=== PATIENT | female | born 1985 | race Caucasian/White ===

== ENCOUNTER 2017-07-31 13:46 | Emergency (ER) | payer OTHER ==
[~2017-07-31] VITALS: Ht 157.5 cm; Wt 115.0 kg
[2017-07-31 13:48] VITALS: BP 139/86; PULSE 92; RESP 22; TEMP 98.6; O2SAT 97
[2017-07-31 14:51] LABS: AUTOMATED NEUTROPHIL # 7.2 TH/MM3 (1.8-7.7); BASOPHIL % 0.3 % (0.0-2.0); EOSINOPHIL # 0.1 TH/MM3 (0-0.4); EOSINOPHIL % 0.9 % (0.0-4.0); HEMATOCRIT 36.1 % (35.0-46.0); HEMO FLAGS DIFF FINAL; LYMPH % 25.9 % (9.0-44.0); LYMPHOCYTE # 2.8 TH/MM3 (1.0-4.8); MEAN CELL VOLUME 92.8 FL (80.0-100.0); MEAN CORPUSCULAR HEMOGLOBIN 32.2 PG (27.0-34.0); MEAN CORPUSCULAR HGB CONC 34.7 % (32.0-36.0); MONO % 5.8 % (0.0-8.0); NEUT % 67.1 % (16.0-70.0); PLATELET COUNT 177 TH/MM3 (150-450); RED BLOOD COUNT 3.89 MIL/MM3 (4.00-5.30); RED CELL DISTRIBUTION WIDTH 12.6 % (11.6-17.2); WHITE BLOOD COUNT 10.8 TH/MM3 (4.0-11.0)
[2017-07-31 15:00] LABS: APTT (PATIENT) 26.1 SEC (24.3-30.1); PROTHROMBIN TIME - PATIENT 10.9 SEC (9.8-11.6)
[2017-07-31 15:08] LABS: BICARBONATE 27.7 MEQ/L (21.0-32.0); POTASSIUM 3.6 MEQ/L (3.5-5.1)
[2017-07-31 15:09] LABS: BACTERIA, URINE RARE /hpf; BLOOD, URINE MOD (NEG); COMMENT (UR) CULT NOT INDICATED; CULTURE IF INDICATED CULT NOT INDICATED; GLUCOSE,URINE NEG (NEG); KETONE, URINE NEG (NEG); MUCUS URINE FEW /lpf (OCC); NITRITE,URINE NEG (NEG); PH, URINE 5.5 (5.0-8.5); SQUAMOUS EPITHELIAL CELL URINE 5 /hpf (0-5); URINE COLOR YELLOW (YELLW/STRAW)
--- NOTE | 2017-07-31 15:39 | PD ---
HPI Chief Complaint: Related Problem Time Seen by Provider: 14:02 Travel History International Travel<30 days: No Contact w/Intl Traveler<30days: No Traveled to known affect area: No History of Present Illness HPI 32yo F who is 6 weeks 1 day presents to the ED with c/o vaginal spotting less than an hour ago. 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 Denies any fever, chest pain, sob, n/v, abdominal pain , dysuria, vaginal discharge. PFSH Past Medical History Medical History: Denies Significant Hx Diminished Hearing: No Influenza Vaccination: No ?: Miscarriage: 2 Dilation and Curettage (D&C): Yes Past Surgical History Cholecystectomy: Yes Social History Alcohol Use: No Tobacco Use: No Substance Use: No Allergies-Medications Reported Meds & Prescriptions Reported Meds & Active Scripts Active Macrobid (Nitrofurantoin Monoh/Nitrofur Macro) 100 Mg Cap 100 Mg PO BID 5 Days Review of Systems Except as stated in HPI: all other systems reviewed are Neg Physical Exam Narrative GENERAL: 32yo F not in distress. SKIN: Focused skin assessment warm/dry. HEAD: Atraumatic. Normocephalic. CARDIOVASCULAR: Regular rate and rhythm. No murmur appreciated. RESPIRATORY: No accessory muscle use. Clear to auscultation. Breath sounds equal bilaterally. GASTROINTESTINAL: Abdomen soft, non-tender, nondistended. No rebound tenderness or guarding. PELVIC: Cervical os closed. No blood in vaginal vault. No CMT or adnexal tenderness bilaterally. No vaginal discharge. MUSCULOSKELETAL: No obvious deformities. No clubbing. No cyanosis. No edema. NEUROLOGICAL: Awake and alert. No obvious cranial nerve deficits. Motor grossly within normal limits. Normal speech. PSYCHIATRIC: Appropriate mood and affect; insight and judgment normal. Data Data Last Documented VS Vital Signs Date Time Temp Pulse Resp B/P (MAP) Pulse Ox O2 Delivery O2 Flow Rate FiO2 07/31/17 18:28 86 18 140/83 (102) 100 07/31/17 13:48 98.6 Room Air Orders Orders Complete Blood Count With Diff (07/31/17 14:10) Basic Metabolic Panel (Bmp) (07/31/17 14:10) Beta Hcg (Quant/Titer) (07/31/17 14:10) Prothrombin Time / Inr (Pt) (07/31/17 14:10) Act Partial Throm Time (Ptt) (07/31/17 14:10) Type And Screen (07/31/17 14:10) Urinalysis - C+S If Indicated (07/31/17 14:11) Ed Poc Ultrasound (07/31/17 ) Us Pelvis Preg W Transvaginal (07/31/17 ) Labs Laboratory Tests Test 07/31/17 14:26 07/31/17 14:46 White Blood Count 10.8 TH/MM3 Red Blood Count 3.89 MIL/MM3 Hemoglobin 12.5 GM/DL Hematocrit 36.1 % Mean Corpuscular Volume 92.8 FL Mean Corpuscular Hemoglobin 32.2 PG Mean Corpuscular Hemoglobin Concent 34.7 % Red Cell Distribution Width 12.6 % Platelet Count 177 TH/MM3 Mean Platelet Volume 8.3 FL Neutrophils (%) (Auto) 67.1 % Lymphocytes (%) (Auto) 25.9 % Monocytes (%) (Auto) 5.8 % Eosinophils (%) (Auto) 0.9 % Basophils (%) (Auto) 0.3 % Neutrophils # (Auto) 7.2 TH/MM3 Lymphocytes # (Auto) 2.8 TH/MM3 Monocytes # (Auto) 0.6 TH/MM3 Eosinophils # (Auto) 0.1 TH/MM3 Basophils # (Auto) 0.0 TH/MM3 CBC Comment DIFF FINAL Differential Comment Prothrombin Time 10.9 SEC Prothromb Time International Ratio 1.0 RATIO Activated Partial Thromboplast Time 26.1 SEC Blood Urea Nitrogen 11 MG/DL Creatinine 0.66 MG/DL Random Glucose 103 MG/DL Calcium Level 8.6 MG/DL Sodium Level 138 MEQ/L Potassium Level 3.6 MEQ/L Chloride Level 104 MEQ/L Carbon Dioxide Level 27.7 MEQ/L Anion Gap 6 MEQ/L Estimat Glomerular Filtration Rate 103 ML/MIN Human Chorionic Gonadotropin, Quant 81642 MIU/ML Urine Color YELLOW Urine Turbidity HAZY Urine pH 5.5 Urine Specific [place] 1.022 Urine Protein TRACE mg/dL Urine Glucose (UA) NEG mg/dL Urine Ketones NEG mg/dL Urine Occult Blood MOD Urine Nitrite NEG Urine Bilirubin NEG Urine Urobilinogen LESS THAN 2.0 MG/DL Urine Leukocyte Esterase NEG Urine RBC 2 /hpf Urine WBC 2 /hpf Urine Squamous Epithelial Cells 5 /hpf Urine Bacteria RARE /hpf Urine Mucus FEW /lpf Microscopic Urinalysis Comment CULT NOT INDICATED MDM Medical Decision Making Medical Screen Exam Complete: Yes Emergency Medical Condition: Yes Differential Diagnosis Subchorionic hemorrhage vs. missed vs. incomplete vs. ectopic Narrative Course 32yo F who is 6 weeks 1 day here with vaginal bleeding today. No abdominal pain. No other symptoms. Labs reviewed, no leukocytosis. H/[place] [address]. UA showed WBC 2. Culture not indicated. Blood type is B positive. I attempted to do bedside ultrasound and saw a gestational sac but cannot definitive see an IUP with heart beat. Official TVUS ordered. Sign out to next team to follow up TVUS. Procedures Procedure Narrative Emergency Department Pelvic ultrasound was performed with patient consent. The curvilinear probe was used in the transverse and sagittal views within the suprapubic region revealing gestational sac. However, I do not see a pole and no definite intrauterine . Will obtain official TVUS. Diagnosis Primary Impression: Vaginal bleeding in Scripts Nitrofurantoin Monohydrate Macrocrystals (Macrobid) 100 Mg Cap 100 MG PO BID for Infection for 5 Days, #10 CAP 0 Refills Prov: Marcelino Lloyd MD 07/31/17 Rosina Hrenandez DO Jul 31, 2017 15:39
--- NOTE | 2017-07-31 17:57 | RADRPT ---
EXAM DATE/TIME: 07/31/2017 16:44 [facility] COMPARISON: No previous studies available for comparison. INDICATIONS : Vaginal spotting during . LAB(S): Beta-hC MEDICAL HISTORY : . Miscarriage. SURGICAL HISTORY : Dilation and curettage. Cholecystectomy. ENCOUNTER: Initial ACUITY: 1 day PAIN SCORE: 0/10 LOCATION: Bilateral pelvis MEASUREMENTS: UTERUS: 8.3 x 5.9 x 5.3 cm ENDOMETRIAL STRIPE: 9 mm RIGHT OVARY: NOT VISUALIZED cm LEFT OVARY: 3.4 x 3.0 x 2.2 cm FREE FLUID: Yes CROWN RUMP LENGTH: 0.5 cm = 6 WKS 2 DAYS FHR: 118 BPM FINDINGS: UTERUS: There is a single intrauterine gestational sac with a pole present corresponding to 6 week s 2 days gestational age. cardiac activity is noted although decreased at 118 bpm. Uterus is otherwise unremarkable. RIGHT OVARY: Not visualized. LEFT OVARY: Small subcentimeter cyst. Otherwise unremarkable. MISCELLANEOUS: Trace free fluid. CONCLUSION: 1. Single intrauterine gestation corresponding to 6 weeks 2 days. There is cardiac activity alt ravi decreased at 118 bpm. 2. Trace pelvic free fluid. Gaurav Harper MD on July 31, 2017 at 17:53 Board Certified Radiologist. This report was verified electronically.
[2017-07-31] MEDS ORDERED: MACR100C2 PO (18:07)
--- NOTE | 2017-07-31 18:07 | PD ---
Data Data Last Documented VS Vital Signs Date Time Temp Pulse Resp B/P (MAP) Pulse Ox O2 Delivery O2 Flow Rate FiO2 07/31/17 13:48 98.6 92 22 139/86 (103) 97 Room Air Orders Orders Complete Blood Count With Diff (07/31/17 14:10) Basic Metabolic Panel (Bmp) (07/31/17 14:10) Beta Hcg (Quant/Titer) (07/31/17 14:10) Prothrombin Time / Inr (Pt) (07/31/17 14:10) Act Partial Throm Time (Ptt) (07/31/17 14:10) Type And Screen (07/31/17 14:10) Urinalysis - C+S If Indicated (07/31/17 14:11) Ed Poc Ultrasound (07/31/17 ) Us Pelvis Preg W Transvaginal (07/31/17 ) Labs Laboratory Tests Test 07/31/17 14:26 07/31/17 14:46 White Blood Count 10.8 TH/MM3 Red Blood Count 3.89 MIL/MM3 Hemoglobin 12.5 GM/DL Hematocrit 36.1 % Mean Corpuscular Volume 92.8 FL Mean Corpuscular Hemoglobin 32.2 PG Mean Corpuscular Hemoglobin Concent 34.7 % Red Cell Distribution Width 12.6 % Platelet Count 177 TH/MM3 Mean Platelet Volume 8.3 FL Neutrophils (%) (Auto) 67.1 % Lymphocytes (%) (Auto) 25.9 % Monocytes (%) (Auto) 5.8 % Eosinophils (%) (Auto) 0.9 % Basophils (%) (Auto) 0.3 % Neutrophils # (Auto) 7.2 TH/MM3 Lymphocytes # (Auto) 2.8 TH/MM3 Monocytes # (Auto) 0.6 TH/MM3 Eosinophils # (Auto) 0.1 TH/MM3 Basophils # (Auto) 0.0 TH/MM3 CBC Comment DIFF FINAL Differential Comment Prothrombin Time 10.9 SEC Prothromb Time International Ratio 1.0 RATIO Activated Partial Thromboplast Time 26.1 SEC Blood Urea Nitrogen 11 MG/DL Creatinine 0.66 MG/DL Random Glucose 103 MG/DL Calcium Level 8.6 MG/DL Sodium Level 138 MEQ/L Potassium Level 3.6 MEQ/L Chloride Level 104 MEQ/L Carbon Dioxide Level 27.7 MEQ/L Anion Gap 6 MEQ/L Estimat Glomerular Filtration Rate 103 ML/MIN Human Chorionic Gonadotropin, Quant 23002 MIU/ML Urine Color YELLOW Urine Turbidity HAZY Urine pH 5.5 Urine Specific [place] 1.022 Urine Protein TRACE mg/dL Urine Glucose (UA) NEG mg/dL Urine Ketones NEG mg/dL Urine Occult Blood MOD Urine Nitrite NEG Urine Bilirubin NEG Urine Urobilinogen LESS THAN 2.0 MG/DL Urine Leukocyte Esterase NEG Urine RBC 2 /hpf Urine WBC 2 /hpf Urine Squamous Epithelial Cells 5 /hpf Urine Bacteria RARE /hpf Urine Mucus FEW /lpf Microscopic Urinalysis Comment CULT NOT INDICATED MDM Supervised Visit with MARYAM: No Narrative Course The patient was initially evaluated by the previous provider and signed out to me at the beginning of my shift pending pelvic ultrasound and disposition. See her note for further details. Briefly this is a 32-year-old female proximal 6 weeks here for evaluation of vaginal spotting. Initial provider performed pelvic exam and showed a closed cervical os. Vital signs reviewed and are essentially within normal limits aside from a slight tachycardia of 92 bpm. CBC is unremarkable. BMP is unremarkable. Beta hCG is 27,804. Blood type is B+. UA shows red bacteria. Pelvic ultrasound: CONCLUSION: 1. Single intrauterine gestation corresponding to 6 weeks 2 days. There is cardiac activity although decreased at 118 bpm. 2. Trace pelvic free fluid. Patient was made aware of all findings and provided a copy of her ultrasound report. She has an appointment with an POSTAL TRANSPORTATION CLERK physician at the end of this month. She will be started on Macrobid for bacteriuria during . Pelvic rest endorsed. She is stable for discharge home with outpatient follow- up. She was informed on when to return to the emergency department. She verbalizes understanding and agreement with plan. Diagnosis Primary Impression: Vaginal bleeding in Additional Impression: Bacteriuria during Referrals: Dispensing Operator As scheduled. Additional Instruction: Follow-up with your POSTAL TRANSPORTATION CLERK physician as scheduled. Return to the emergency department for worsening symptoms or any other concerns. Scripts Nitrofurantoin Monohydrate Macrocrystals (Macrobid) 100 Mg Cap 100 MG PO BID for Infection for 5 Days, #10 CAP 0 Refills Prov: Marcelino Lloyd MD 07/31/17 Disposition: 01 DISCHARGE HOME Condition: Stable Marcelino Lloyd MD Jul 31, 2017 18:07
[2017-07-31 18:28] VITALS: BP 140/83
== END 2017-07-31 18:30 | disposition home or self-care (01) ==
LOC: NEPD 13:46
DX: O20.9 Hemorrhage in early pregnancy, unspecified (principal); Z3A.01 Less than 8 weeks gestation of pregnancy
CPT/HCPCS: 76801; 76817; 80048; 81001; 84702; 85025; 85610; 85730; 86850; 86900; 86901; 99285

== ENCOUNTER → 2017-09-19 | Outpatient (CLI) | payer OTHER ==
[~2017-09-19] MED LIST: MACR100C2 PO
== END ==
LOC: HPND 10:05
PROVIDERS: ATTEND Obstetrics & Gynecology
DX: O09.521 Supervision of elderly multigravida, first trimester (principal); Z36.82 Encounter for antenatal screening for nuchal translucency
CPT/HCPCS: 36415; 76813

== ENCOUNTER → 2017-11-07 | Outpatient (CLI) | payer OTHER | LOC: HPND 09:34 | PROVIDERS: ATTEND Obstetrics & Gynecology | DX: O34.12 Maternal care for benign tumor of corpus uteri, second trimester (principal); O99.212 Obesity complicating pregnancy, second trimester; Z68.41 Body mass index [BMI] 40.0-44.9, adult; Z36.2 Encounter for other antenatal screening follow-up | CPT/HCPCS: 76811 ==

== ENCOUNTER → 2017-12-06 | Outpatient (CLI) | payer OTHER | LOC: HPND 09:43 | PROVIDERS: ATTEND Obstetrics & Gynecology | DX: O99.212 Obesity complicating pregnancy, second trimester (principal); O34.12 Maternal care for benign tumor of corpus uteri, second trimester; E66.01 Morbid (severe) obesity due to excess calories; Z68.41 Body mass index [BMI] 40.0-44.9, adult | CPT/HCPCS: 76816 ==

== ENCOUNTER → 2018-01-02 | Outpatient (CLI) | payer OTHER | LOC: HPND 07:46 | PROVIDERS: ATTEND Obstetrics & Gynecology | DX: O35.8XX0 Maternal care for other (suspected) fetal abnormality and damage, not applicable or unspecified (principal) | CPT/HCPCS: 76816 ==

== ENCOUNTER 2018-01-10 12:31 | Emergency (ER) | payer OTHER ==
--- NOTE | 2018-01-10 13:03 | PD ---
HPI Chief Complaint Sharp stabbing abdominal pain Travel History International Travel<30 Days: No Contact w/Intl Traveler<30Days: No Known Affected Area: No History of Present Illness HPI 32-year-old 010, IUP at 30 weeks care complicated by obesity, possible gestational versus chronic hypertension The patient presents complaining of sharp, stabbing pains that she first noted about 2 AM. She noted that she had some lower back pain last night. She reports that these sharp stabbing pains only last a few seconds but a been occurring frequently today. She reports these sharp stabbing pains aren't knifelike, they're worse with moving, they're better at rest, and a radiate to her lower back. There are no attempted treatments. There are no other alleviating factors. The patient reports good movement. She denies any leaking of fluid or vaginal bleeding. She denies any painful contractions or cramping. Weeks Gestation: 30 Para: 0 : 2 Miscarriage: 1 : 0 History Past Medical History Narrative Medical Obesity Obstetric History Obstetric History 010, D&C at 11 weeks for miscarriage Past Surgical History Narrative Surgical D&C Family History Narrative Family History Mitral valve prolapse Social History Alcohol Use: No Tobacco Use: No Substance Abuse: No Allergies-Medications Home Meds Active Scripts Nitrofurantoin Monohydrate Macrocrystals (Macrobid) 100 Mg Cap, 100 MG PO BID for Infection for 5 Days, #10 CAP 0 Refills Prov:Marcelino Lloyd MD 07/31/17 Review of Systems Except as stated in HPI: all other systems reviewed are Neg Gastrointestinal: Nausea, No: Vomiting, Diarrhea, Abdominal Pain, Hematemesis, Hematochezia, Constipation, Changes in Bowel Habits, Indigestion, Loss of Appetite, Other Genitourinary: No: Urgency, Frequency, Dysuria, Nocturia, Hematuria, Decreased Urinary Output, Oliguria, Hesitancy, Dribbling, Pelvic Pain, Vaginal Bleeding Physical Exam Narrative GENERAL: Well-nourished, well-developed patient. SKIN: Warm and dry. HEAD: Normocephalic and atraumatic. EYES: No scleral icterus. No injection or drainage. ENT: No nasal drainage noted. Mucous membranes pink. Airway patent. NECK: Supple, trachea midline. No JVD. CARDIOVASCULAR: Regular rate and rhythm without murmurs, gallops, or rubs. RESPIRATORY: Breath sounds equal bilaterally. No accessory muscle use. BREASTS: Deferred ABDOMEN/GI: Abdomen soft, non-tender, bowel sounds present, no rebound, no guarding Gravid. Sharp stabbing pain is reproduced by side to side/lateral movement of uterus by palpation GENITOURINARY: External Genitalia: intact and normal in appearance. Normale EGBUS. No cervical or vaginal masses. Physiologic discharge. Cervix visually closed, SVE closed/thick/high FHT: heart tones in the 140s-150s with moderate manager intermediate variability, good accels, no concerning decels. FHR reassuring and appropriate for gestational age. FHR reactive for gestational age, category 1 heart rate tracing. EXTREMITIES: No cyanosis or edema. BACK: Nontender without obvious deformity. NEUROLOGICAL: Awake and alert. Motor and sensory grossly within normal limits. Normal speech. Muscle skeletal: Grossly normal range of motion, gait, muscle strength Psychiatric: Grossly normal memory and affect MDM Plan Assessment/plan: 1. IUP at 30 weeks 2. Abdominal pain: The sharp stabbing nature of the pain that is reproducible bilateral/[id number] movement of the uterus is consistent with round ligament stretching. There is no evidence of labor. There is no evidence of gastroenteritis or other etiology for abdominal pain strength. Strict labor precautions. Strict abdominal pain precautions. 3. UA: negative 4. Obesity 5. well-being: Reassuring testing with reactive NST and category 1 heart rate tracing that is appropriate for gestational age. kick counts daily 6. Follow up with primary OB in 2-3 days or sooner if needed. Diagnosis Diagnosis: Primary Impression: 30 weeks gestation of Additional Impressions: Round ligament pain False labor Disposition: 01 DISCHARGE HOME Condition: Tyra Cabrales MD Jan 10, 2018 13:03
[2018-01-10 13:48] LABS: BACTERIA, URINE RARE /hpf; BILIRUBIN, URINE NEG (NEG); BLOOD, URINE NEG (NEG); GLUCOSE,URINE NEG (NEG); KETONE, URINE NEG (NEG); NITRITE,URINE NEG (NEG); SQUAMOUS EPITHELIAL CELL URINE 13 /hpf (0-5); URINE COLOR YELLOW (YELLW/STRAW); URINE LEUKOCYTE ESTERASE NEG (NEG)
== END 2018-01-10 14:30 | disposition home or self-care (01) ==
LOC: HOBED 12:31
DX: O47.03 False labor before 37 completed weeks of gestation, third trimester (principal); R10.2 Pelvic and perineal pain; O99.213 Obesity complicating pregnancy, third trimester; Z3A.30 30 weeks gestation of pregnancy
CPT/HCPCS: 81001; 99284

== ENCOUNTER → 2018-02-14 | Outpatient (CLI) | payer OTHER | LOC: HPND 13:12 | PROVIDERS: ATTEND Obstetrics & Gynecology | DX: O34.13 Maternal care for benign tumor of corpus uteri, third trimester (principal); O35.1XX0 Maternal care for (suspected) chromosomal abnormality in fetus, not applicable or unspecified; O99.213 Obesity complicating pregnancy, third trimester; E66.01 Morbid (severe) obesity due to excess calories; Z68.41 Body mass index [BMI] 40.0-44.9, adult | CPT/HCPCS: 76816 ==

== ENCOUNTER 2018-03-15 13:32 | Emergency (ER) | END 2018-03-15 14:32 | disposition home or self-care (01) | DX: O47.1 False labor at or after 37 completed weeks of gestation (principal); Z3A.38 38 weeks gestation of pregnancy ==

== ENCOUNTER 2018-03-23 09:36 | Inpatient (IN) | payer OTHER ==
[2018-03-22 17:38] VITALS: RESP 18
[~2018-03-23] VITALS: Ht 157.5 cm; Wt 110.0 kg
--- NOTE | 2018-03-23 10:30 | PD ---
HPI Chief Complaint ctxs Date Seen: March 23, 2018 Time Seen: 10:27 Travel History International Travel<30 Days: No Contact w/Intl Traveler<30Days: No Known Affected Area: No History of Present Illness HPI pt. is a 34 @ 40 1/7 weeks present w/ c/o ctxs. contractions have increased in freq and intensity over the last day. on exam pt. noted 3-4/90/0 w / bulging membranes. +FM, no lof. Weeks Gestation: 40 Para: 0 : 2 Last Menstrual Period: March 23, 2018 History Past Medical History Medical History: Denies Significant Hx Obstetric History Obstetric History , sab x 1 Past Surgical History Surgical History: No Previous Surgery Family History Family History: Negative Social History Alcohol Use: No Tobacco Use: No Substance Abuse: No Allergies-Medications Home Meds Active Scripts Nitrofurantoin Monohydrate Macrocrystals (Macrobid) 100 Mg Cap, 100 MG PO BID for Infection for 5 Days, #10 CAP 0 Refills Prov:Marcelino Lloyd MD 07/31/17 Review of Systems Except as stated in HPI: all other systems reviewed are Neg Physical Exam Narrative GENERAL: Well-nourished, well-developed patient. SKIN: Warm and dry. HEAD: Normocephalic and atraumatic. EYES: No scleral icterus. No injection or drainage. ENT: No nasal drainage noted. Mucous membranes pink. Airway patent. NECK: Supple, trachea midline. No JVD. CARDIOVASCULAR: Regular rate and rhythm without murmurs, gallops, or rubs. RESPIRATORY: Breath sounds equal bilaterally. No accessory muscle use. BREASTS: Bilateral exam showed no masses , no retractions, no nipple discharge. ABDOMEN/GI: Abdomen soft, non-tender, bowel sounds present, no rebound, no guarding Gravid to [-] weeks size Fundal Height: [-] GENITOURINARY: External Genitalia: intact and normal in appearance BUS glands: [-] Cervix: [-] Dilatation: [-] Effacement: [-] Station: [-] Presentation: [-] Membranes: [intact or ruptured] Uterine Contractions: [-] FHT's: Category: [-] Baseline: [-] Reactive: [-] Variability: [-] Decels: [-] EXTREMITIES: No cyanosis or edema. BACK: Nontender without obvious deformity. No CVA tenderness. NEUROLOGICAL: Awake and alert. Motor and sensory grossly within normal limits. Five out of 5 muscle strength in all muscle groups. Normal speech. Data Data Vital Signs Reviewed: Yes Orders Orders Ob (2e) Additional Admit Info (03/23/18 10:01) MDM Plan pt. in labor. fentanyl vs epidural for analgesia. pt. to be admitted. Diagnosis Diagnosis: Primary Impression: Active labor at term Additional Impression: 40 weeks gestation of Sachin Hutton Jr., MD March 23, 2018 10:30
[2018-03-23] MEDS ORDERED: LACTATED RINGER'S 1000 ML INJ 1,000 ML IV SCH (10:33)
[2018-03-23] MEDS ORDERED: LACTATED RINGER'S 1000 ML INJ 1,000 ML IV PRN (10:33)
--- NOTE | 2018-03-23 10:33 | HHI.HP ---
History & Physical H&P HPI Chief Complaint ctxs Date Seen: March 23, 2018 Time Seen: 10:27 Travel History International Travel<30 Days: No Contact w/Intl Traveler<30Days: No Known Affected Area: No History of Present Illness HPI pt. is a 34 @ 40 1/7 weeks present w/ c/o ctxs. contractions have increased in freq and intensity over the last day. on exam pt. noted 3-4/90/0 w / bulging membranes. +FM, no lof. Weeks Gestation: 40 Para: 0 : 2 Last Menstrual Period: March 23, 2018 History (Limited) History Past Medical History Medical History: Denies Significant Hx Obstetric History Obstetric History , sab x 1 Past Surgical History Surgical History: No Previous Surgery Family History Family History: Negative Social History Alcohol Use: No Tobacco Use: No Substance Abuse: No Allergies-Medications Allergies-Medications Home Meds Active Scripts Nitrofurantoin Monohydrate Macrocrystals (Macrobid) 100 Mg Cap, 100 MG PO BID for Infection for 5 Days, #10 CAP 0 Refills Prov:Marcelino Lloyd MD 07/31/17 ROS Review of Systems Except as stated in HPI: all other systems reviewed are Neg Physical Exam Physical Exam Narrative GENERAL: Well-nourished, well-developed patient. SKIN: Warm and dry. HEAD: Normocephalic and atraumatic. EYES: No scleral icterus. No injection or drainage. ENT: No nasal drainage noted. Mucous membranes pink. Airway patent. NECK: Supple, trachea midline. No JVD. CARDIOVASCULAR: Regular rate and rhythm without murmurs, gallops, or rubs. RESPIRATORY: Breath sounds equal bilaterally. No accessory muscle use. ABDOMEN/GI: Abdomen soft, non-tender, bowel sounds present, no rebound, no guarding Gravid GENITOURINARY: External Genitalia: intact and normal in appearance Dilatation: 3-4 Effacement:90 Station:0 Presentation: cephalic Membranes: intact Uterine Contractions: q2-3min FHT's: Category: 1 Reactive: + Variability: mod EXTREMITIES: No cyanosis or edema. BACK: Nontender without obvious deformity. No CVA tenderness. NEUROLOGICAL: Awake and alert. Motor and sensory grossly within normal limits. Five out of 5 muscle strength in all muscle groups. Normal speech. Data Data Data Vital Signs Reviewed: Yes Orders Orders Ob (2e) Additional Admit Info (03/23/18 10:01) MDM MDM Plan pt. in labor. fentanyl vs epidural for analgesia. pt. to be admitted. GBS - Diagnosis Diagnosis: Primary Impression: Active labor at term Additional Impression: 40 weeks gestation of Sachin Hutton Jr., MD March 23, 2018 10:33
[2018-03-23] MEDS ORDERED: MINERAL OIL 10 ML VIAL TOPICAL PRN (10:45)
[2018-03-23] MEDS ORDERED: LIDOCAINE HCL 1% 50 ML VIAL INFIL PRN (10:45)
[2018-03-23] MEDS ORDERED: ONDANSETRON ODT 4 MG TAB PO PRN ×2 (10:45→18:00)
[2018-03-23] MEDS ORDERED: OXYTOCIN 30 UNITS-500ML PREMIX 500 ML IV ONE (10:45)
[2018-03-23] MEDS ORDERED: LIDOCAINE HCL 1% 50 ML VIAL I-DERMAL PRN (10:45)
[2018-03-23] MEDS ORDERED: SODIUM CHLORID 0.9% 500 ML INJ 500 ML IV PRN (10:45)
[2018-03-23] MEDS ORDERED: SODIUM CHLOR 0.9% 1000 ML INJ 1,000 ML IV PRN (10:53)
[2018-03-23 10:55] LABS: BASOPHIL # 0.1 TH/MM3 (0-0.2); BASOPHIL % 0.4 % (0.0-2.0); EOSINOPHIL # 0.1 TH/MM3 (0-0.4); EOSINOPHIL % 0.6 % (0.0-4.0); HEMATOCRIT 33.7 % (35.0-46.0); HEMOGLOBIN 11.6 GM/DL (11.6-15.3); LYMPH % 17.5 % (9.0-44.0); LYMPHOCYTE # 2.6 TH/MM3 (1.0-4.8); MEAN CELL VOLUME 91.2 FL (80.0-100.0); MEAN CORPUSCULAR HEMOGLOBIN 31.5 PG (27.0-34.0); MEAN CORPUSCULAR HGB CONC 34.5 % (32.0-36.0); MEAN PLATELET VOLUME 8.5 FL (7.0-11.0); MONO % 6.3 % (0.0-8.0); MONOCYTE # 0.9 TH/MM3 (0-0.9); NEUT % 75.2 % (16.0-70.0); PLATELET COUNT 192 TH/MM3 (150-450); RED CELL DISTRIBUTION WIDTH 13.4 % (11.6-17.2); WHITE BLOOD COUNT 14.6 TH/MM3 (4.0-11.0)
[2018-03-23 11:08] LABS: BACTERIA, URINE OCC /hpf; BILIRUBIN, URINE NEG (NEG); BLOOD, URINE MOD (NEG); GLUCOSE,URINE NEG (NEG); HYALINE CAST, URINE 2 /lpf (RARE); KETONE, URINE NEG (NEG); MUCUS URINE FEW /lpf (OCC); NITRITE,URINE NEG (NEG); PH, URINE 6.5 (5.0-8.5); SQUAMOUS EPITHELIAL CELL URINE 17 /hpf (0-5); URINE COLOR YELLOW (YELLW/STRAW); URINE LEUKOCYTE ESTERASE LARGE (NEG)
[2018-03-23] MEDS ORDERED: fentaNYL 2MCG-BUPIV 0.125% INJ 150 ML EPIDURAL ONE (14:14)
[2018-03-23] MEDS ORDERED: ePHEDrine/NS 25 MG/5 ML SYRINGE ONE (14:15)
[2018-03-23] MEDS ORDERED: LIDOCAINE 1.5%/EPINEPHrine 1:200,000 PF 5 ML AMP ONE (14:21)
[2018-03-23] MEDS ORDERED: NO SYSTEM NARCOTICS PRN (15:15)
[2018-03-23] MEDS ORDERED: DO NOT ADMINISTER ANTICOAGULANTS PRN (15:15)
[2018-03-23] MEDS ORDERED: ePHEDrine/NS 25 MG/5 ML SYRINGE IV PUSH PRN (15:15)
[2018-03-23] MEDS ORDERED: fentaNYL 2MCG-BUPIV 0.125% 150 ML EPIDURAL PRN (15:15)
[2018-03-23] MEDS ORDERED: DIPHTH/TETANUS/ACEL PERTUSSIS (BOOSTER) 0.5 ML VIAL/PFS IM ONE (16:00)
[2018-03-23] MEDS ORDERED: MEASLES, MUMPS, RUBELLA VACCINE 0.5 ML VIAL SQ ONE (16:00)
[2018-03-23] MEDS ORDERED: LIDOCAINE HCL 1% PF 30 ML VIAL ONE (16:13)
[2018-03-23] MEDS ORDERED: OXYTOCIN 30 UNITS-500ML PREMIX 500 ML IV SCH (18:00)
[2018-03-23] MEDS ORDERED: OXYTOCIN 30 UNITS-500ML PREMIX 500 ML IV PRN (18:00)
[2018-03-23] MEDS ORDERED: SODIUM CHLORIDE 0.9% FLUSH 10 ML FLUSH IV FLUSH PRN (18:00)
[2018-03-23] MEDS ORDERED: ZOLPIDEM TARTRATE 5 MG TAB PO PRN (18:00)
[2018-03-23] MEDS ORDERED: ALUMINUM/MAGNESIUM/SIMETH 30 ML CUP PO PRN (18:00)
[2018-03-23] MEDS ORDERED: BENZOCAINE 20% TOPICAL SPRAY 60 ML CAN TOPICAL PRN (18:00)
--- NOTE | 2018-03-23 18:02 | PD.OB.DELI ---
Weeks gestation: 40 Gest age assessed date: March 23, 2018 Gest age assessed time: 14:00 Pt started active labor?: Yes Active labor start date: March 23, 2018 Active labor start time: 14:00 Medical induction of labor?: No Artificial rupture of membrane: No Anesthesia: Epidural Episiotomy: Right mediolateral Vaginal Delivery: Vacuum (vacuum for maternal exhaustion 3 pulls one pop off never exceeded manifacturer pressure and single contraction), Spontaneous Presentation: Occiput anterior Nuchal Cord: None Delayed cord clamping (45 sec): Yes Infant: Male, Single Delivery date: March 23, 2018 Delivery time: 17:26 One Minute : 7 Five Minute : 8 Laceration: Episiotomy, 2 deg Repair: Chromic running Estimated blood loss: 300 Additional Information easy pull after head out no shoulder dystocia Antonio Arteaga MD March 23, 2018 18:02
[2018-03-23] MEDS: IBUPROFEN 800 MG TAB PO PRN (18:33)
[2018-03-23] MEDS ORDERED: SODIUM CHLORIDE 0.9% FLUSH 10 ML FLUSH IV FLUSH SCH (21:00)
[2018-03-23] MEDS: WITCH HAZEL 50%/GLYCERIN 12.5% 40 PAD JAR TOPICAL PRN (23:45)
[2018-03-24] MEDS: ACETAMINOPHEN 325 MG TAB PO PRN ×2 (06:28→15:46)
[2018-03-24] MEDS: IBUPROFEN 800 MG TAB PO PRN ×2 (06:28→15:46)
--- NOTE | 2018-03-24 07:34 | HHI.OB ---
Subjective Post Day: 1 Remarks doing well after active labor and delivery with vacuum assist Objective Objective Remarks GENERAL: Well-nourished, well-developed patient. ABDOMEN/GI: Abdomen soft, non-tender. Fundus: Firm, non-tender at umbilicus. GENITOURINARY: Light to moderate bleeding. EXTREMITIES: No cyanosis or edema, non-tender, without signs of DVT. Medications and IVs Current Medications Medications (Trade) Dose Ordered Sig/Kayla Route Start Time Stop Time Status Last Admin ([facility] [place] Nursing Information) No systemic narcotics to be given except... UNSCH PRN .XX 03/23/18 15:15 03/24/18 15:14 ([facility] [place] Nursing Information) DO NOT ADMINISTER ANY ANTICOAGUL... UNSCH PRN .XX 03/23/18 15:15 03/24/18 15:14 (NS Flush) 2 ml BID IV FLUSH 03/23/18 21:00 (NS Flush) 2 ml UNSCH PRN IV FLUSH 03/23/18 18:00 (Tylenol) 650 mg Q4H PRN PO 03/23/18 18:00 03/24/18 06:28 (Motrin) 800 mg Q8H PRN PO 03/23/18 18:00 03/24/18 06:28 (Americaine 20% Top Spr) 1 spray Q4H PRN TOPICAL 03/23/18 18:00 (Tucks Pads) 1 applic QID PRN TOPICAL 03/23/18 18:00 03/23/18 23:45 (Prema-Colace) 2 tab Q12H PRN PO 03/23/18 18:00 (Ambien) 5 mg HS PRN PO 03/23/18 18:00 (Mag-Al Plus Susp Liq) 15 ml Q8H PRN PO 03/23/18 18:00 (Zofran Odt) 4 mg Q6H PRN PO 03/23/18 18:00 Oxytocin 500 ml @ 0 mls/hr TITRATE PRN IV 03/23/18 18:00 03/23/18 16:43 Assessment/Plan Problem List: (1) Spontaneous vaginal delivery ICD Codes: O80 - Encounter for full-term uncomplicated delivery Discharge Planning doing well Antonio Arteaga MD March 24, 2018 07:34
--- NOTE | 2018-03-24 07:35 | HHI.DCPOC ---
Discharge Care Plan Diagnosis: (1) Spontaneous vaginal delivery Report Symptoms to Your Doctor -Temperature above 100.5 degrees -Redness, of incision or excessive or foul smelling drainage -Unusual pain or calf pain -Increased vaginal bleeding -Painful or difficulty urinating -Feelings of extreme sadness or anxiety after 2 weeks Goals to Promote Your Health * To prevent worsening of your condition and complications * To maintain your health at the optimal level Directions to Meet Your Goals Take your medications as prescribed Follow your dietary instruction Follow activity as directed Ensure plenty of rest for recovery Drink fluids for hydration Keep your appointments as scheduled Take your immunizations and boosters as scheduled If your symptoms worsen call your PCP, if no PCP go to Urgent Care Center or Emergency Room Smoking is Dangerous to Your Health. Avoid second hand smoke Call the 24-hour crisis hotline for domestic abuse at Antonio Arteaga MD March 24, 2018 07:35
[2018-03-24] MEDS ORDERED: PERC5TAB12 PO (07:36)
--- NOTE | 2018-03-24 07:37 | HHI.DS ---
Admission Date March 23, 2018 at 10:02 Discharge Date: March 24, 2018 Admitting Diagnosis Diagnosis: (1) Spontaneous vaginal delivery Diagnosis: Principal ICD Codes: O80 - Encounter for full-term uncomplicated delivery Delivery Date: March 23, 2018 Vaginal Delivery: Normal, Vacuum : Male, Single Brief History pt. is a 32 @ 40 1/7 weeks present w/ c/o ctxs. contractions have increased in freq and intensity over the last day. on exam pt. noted 3-4/90/0 w / bulging membranes. +FM, no lof. Hospital Course doing well ready for DC home PPd #1 Pt Condition on Discharge: Good Discharge Disposition: Discharge Home Discharge Instructions Diet Instructions: As Tolerated, No Restrictions Activities You Can Perform: Pelvic Rest Activities to Avoid: Driving for 24 hrs Follow up Referrals: MEDIA DIRECTOR - 2 Weeks @ [facility] with Antonio Arteaga MD New Medications: Oxycodone-Acetaminophen (Percocet) 5-325 mg Tab 1-2 TAB PO Q4H PRN for PAIN, #20 TAB 0 Refills Antonio Arteaga MD March 24, 2018 07:37
[2018-03-24] MEDS ORDERED: oxyCODONE/ACETAMINOPHEN 5 MG/325 MG TAB PO PRN (07:45)
[2018-03-24] MEDS: DOCUSATE SODIUM 50 MG/SENNA 8.6 MG TAB PO PRN (15:46)
[2018-03-24] MEDS: WITCH HAZEL 50%/GLYCERIN 12.5% 40 PAD JAR TOPICAL PRN (22:09)
[2018-03-25] MEDS: IBUPROFEN 800 MG TAB PO PRN ×2 (00:27→09:25)
[2018-03-25] MEDS: DOCUSATE SODIUM 50 MG/SENNA 8.6 MG TAB PO PRN (09:24)
[2018-03-25] MEDS: ACETAMINOPHEN 325 MG TAB PO PRN (09:25)
== END 2018-03-25 13:21 | disposition home or self-care (01) | DRG 775 ==
LOC: HOBED 09:36 → H2EB 10:02 → H1EA 20:53
PROVIDERS: ADMIT Obstetrics & Gynecology; ATTEND Obstetrics & Gynecology
PROC: 10D07Z6 Extraction of Products of Conception, Vacuum, Via Natural or Artificial Opening (ICD-10-PCS; principal; 2018-03-23)
PROC: 0W8NXZZ Division of Female Perineum, External Approach (ICD-10-PCS; 2018-03-23)
PROC: 3E0R3BZ Introduction of Anesthetic Agent into Spinal Canal, Percutaneous Approach (ICD-10-PCS; 2018-03-23)
PROC: 00HU33Z Insertion of Infusion Device into Spinal Canal, Percutaneous Approach (ICD-10-PCS; 2018-03-23)
DX: O75.81 Maternal exhaustion complicating labor and delivery (principal); Z37.0 Single live birth; Z3A.40 40 weeks gestation of pregnancy
CPT/HCPCS: 59025; 80307; 81001; 85025; 86900; 86901; 87086; 90715; G0481; J2590; J3010; J7120